=== PATIENT | female | born 1975 | race Caucasian/White ===

== ENCOUNTER 2019-10-30 05:40 | Observation (INO) | payer OTHER, SELFPAY ==
[2019-10-30] VITALS (14 sets, daily range): BP systolic 112–144; BP diastolic 58–100; PULSE 70–132; RESP 12–22; TEMP 36.1–37.6; O2SAT 95–100; BMI 33.3
--- NOTE | ~2019-10-30 | CT_ITS ---
EXAMINATION: CT abdomen pelvis w con EXAM DATE: 10/30/2019 06:35 INDICATION: Right lower quadrant abdominal pain for several days. Nausea and diarrhea. History cholec ystectomy. TECHNIQUE: Spiral CT of the abdomen and pelvis was performed following intravenous injection of 100 m L Omnipaque 350. Axial, coronal and sagittal images were reviewed. The dose-length product (DLP) fo r this examination was 1171.86 mGy-cm. The exposure was tailored according to patient size (auto mA exposure control), and iterative reconstruction (ASIR) was used as additional dose reduction techniqu e. Comparison is made to prior examination from 01/12/2015. FINDINGS: The liver, spleen, adrenal glands and pancreas are unremarkable. Gallbladder not identifie d, patient likely has had cholecystectomy.. Portal and splenic veins are patent. Kidneys enhance sy mmetrically. There is no hydronephrosis. The uterus and ovaries are unremarkable, no adnexal mass. The bladder is unremarkable. There is no retroperitoneal or pelvic lymphadenopathy. There is small to moderate-sized left supraumbilical fat-containing hernia. The appendix is significantly dilated, and has large amount of inflammation surrounding it, without a bscess or evidence of perforation. The stomach and small bowel are unremarkable. There is expected a mount of colonic stool. No free intraperitoneal gas. The heart is normal in size. There are no p ericardial or pleural effusions. The lung bases are unremarkable. The bones are unremarkable. IMPRESSION: Acute uncomplicated appendicitis. I discussed acute uncomplicated appendicitis with Kenya Watson MD at 10/30/2019 06:43 CDT. Reviewed, dictated and finalized at location A. IMPRESSION: Acute uncomplicated appendicitis. I discussed acute uncomplicated appendicitis with Kenya Watson MD at 2019 06:43 CDT.
--- NOTE | 2019-10-30 05:53 | ED.ABDPAIN ---
HPI - Abdominal Pain General Chief Complaint: Abdominal Pain Stated Complaint: RLQ pain Time Seen by Provider: 10/30/19 05:45 Source: patient Mode of arrival: ambulatory Limitations: no limitations History of Present Illness HPI narrative: This patient is a 44 year old female who presents for evaluation of right lower abdominal pain x 2 days. This pain has been constant and worsening. She developed severe pain 4 hours ago. She has associates nausea and dizziness. She has not taken anything for pain today. She denies fever, chills, urinary symptoms or abnormal vaginal discharge or bleeding. MD elicited complaint: abdominal pain Location: RLQ Pain scale (0-10): 7 Migration to: no migration Relieving factors: nothing Associated symptoms: nausea Related Data Hx Last Menstrual Period: 3 weeks ago Home Medications Medication Instructions Recorded Confirmed Xanax 0.25 mg PO TID PRN 10/30/19 10/30/19 Allergies Allergy/AdvReac Type Severity Reaction Status Date / Time morphine Allergy Intermediate Gastrointestinal Verified 10/30/19 06:27 Upset ceftriaxone Allergy Mild Gastrointestinal Verified 10/30/19 06:27 Upset Review of Systems Review of Systems: All systems reviewed & are unremarkable except as noted in HPI and below Constitutional: Constitutional: Denies chills, Reports fatigue and Denies fever(s) Gastrointestinal: Gastrointestinal: Reports abdominal pain, Denies diarrhea, Reports nausea and Denies vomiting Genitourinary: Genitourinary: Denies abnormal vaginal bleeding, Denies hematuria, Denies nocturia, Denies dysuria and Denies vaginal discharge Musculoskeletal: Musculoskeletal: Denies back pain Neurologic: Reports dizziness PMFSH Past Medical History Medical History (Updated 10/30/19 @ 12:01 by Med Birch MD) Anxiety History of hypertension Previously on oral medications. Was able to stop medications after weight loss and lifestyle changes. HTN (hypertension) Migraine Obesity Surgical History Surgical History History of section x 1 History of laparoscopy Exploratory laparoscopy x 2 for FLUID P[employer] concerns of endometriosis. Hx of cholecystectomy Laparoscopic cholecystectomy 2008. Family History Family History Mother Luis Nieto virus infection Daughter Celiac disease Grandparent Diabetes mellitus Grandparent Acute myocardial infarction Social History Social History (Reviewed 10/30/19 @ 10:36 by TIMA Tafoya Social History: The patient lives at home with her , Maxime Romano, and their 5-year-old. She designates her to be her medical decision maker. She wishes to be a full code. Smoking status: Never smoker Alcohol intake: current Alcohol use details: Rare alcohol use, a few times per month. Substance use: never Living arrangements: with family Occupation/Education: other Additional occupation/education comments: Stay at home mom. Gender identity (if verbalized by the patient): Female Sexual Orientation (if Verbalized by the Patient): Straight or Heterosexual Spiritual care concerns: No Exam Narrative: Exam Narrative: GENERAL: well-nourished, appears to be in pain. HEAD: Normocephalic, atraumatic EYES: PERRLA and EOMI, conjunctiva clear without discharge THROAT:Mucous membranes moist, Oropharynx normal without erythema, exudate, peritonsillar swelling or fluctuance NECK: Supple, without lymphadenopathy or mass RESPIRATORY: No respiratory distress, Airway patent, Respirations non-labored, Clear to auscultation without rales, rhonchi or wheeze HEART: tachycardic rate and regular rhythm. No murmur heard. Normal peripheral pulses. ABDOMEN: Soft, distended, RLQ tenderness, hypoactive bs No masses. No rebound or guarding, No organomegaly. EXTREMITIES: No edema, normal strength with f
[2019-10-30 05:58] LABS: Eosinophils Percent Auto 0.5 % (0-4.4); Hematocrit 29.1 % (37.0-47.0); Hemoglobin 9.6 g/dL (12.0-15.0); Lymphocytes Absolute Auto 0.94 K/mm3 (0.9-3.2); Lymphocytes Percent Auto 22.7 % (18.3-44.2); Mean Corpuscular Hemoglobin 27.7 pg (26-34); Mean Corpuscular Volume 84.1 fl (80-100); Mean Platelet Volume 9.6 fl (7.4-10.4); Monocytes Absolute Auto 3.1 K/mm3 (0.1-0.6); Monocytes Percent Auto 74.5 % (2.6-8.5); Neutrophils Absolute Auto 0.1 K/mm3 (1.3-6.7); Neutrophils Percent Auto 2.3 % (45.5-73.1); Nucleated Red Blood Cells Perc 0.5 % (0.0-0.2); Platelet Count Result 157 k/mm3 (150-375); Red Blood Count 3.46 M/mm3 (4.2-5.4); Red Cell Distribution Width 18.4 % (11.5-14.5); White Blood Count 4.2 K/mm3 (4.5-10.0)
[2019-10-30] MEDS: KETOROLAC 30 MG/ML VIAL (*BKC) IV PUSH (06:02)
[2019-10-30] MEDS: SODIUM CHLORIDE 0.9% IV 1,000 ML 999 ML IV CONT (06:05)
[2019-10-30 06:09] LABS: Atypical Lymphocytes Present
[2019-10-30 06:15] LABS: Alanine Aminotransferase 100 U/L (4-35); Albumin Level 4.1 g/dL (3.5-5.1); Alkaline Phosphatase 178 U/L (38-126); Anion Gap 13.9 mmol/L (7-16); Aspartate Amino Transferase 47 U/L (14-36); Bilirubin,Total 0.6 mg/dL (0.2-1.3); Blood Urea Nitrogen 8 mg/dL (7-17); Calcium 9.1 mg/dL (8.4-10.2); Carbon Dioxide 23 mmol/L (22-30); Chloride 102 mmol/L (98-107); Estimated CRCL calculation 106 ml/min; Estimated Glomerular Filt Rate > 60; Glucose 121 mg/dL (65-105); Lipase 35 U/L (23-300); Potassium 3.9 mmol/L (3.4-5.0); Sodium 135 mmol/L (137-145)
[2019-10-30 06:21] LABS: Add Urine Microscopic? YES; Appearance Urine Cloudy (Clear); Bilirubin Urine Negative (Negative); Blood Urine Negative (Negative); Color Urine Yellow (Yellow); Glucose Urine UA Negative (Negative); Ketones Urine 1+ mg/dL (Negative); Leukocyte Esterase Ur Negative LEU/UL (Negative); Mucus Urine Heavy /lpf; Nitrate Urine Negative (Negative); Protein Urine 1+ mg/dL (Negative); RBC Urine 0-2 /hpf (0-2); Specific Grav Ur 1.026 (1.001-1.035); Squamous Epithelial Cell Urine Many /hpf (Few); Urobilinogen Urine Negative mg/dL (<2.0)
[2019-10-30 06:26] LABS: Lactic Acid Reflex 0.8 mmol/L (0.7-2.1)
[2019-10-30] MEDS: SODIUM CHLORIDE 0.9% IV 1,000 ML 125 ML IV CONT (07:28)
[2019-10-30] MEDS: ERTAPENEM 1 GM/NS 50 ML 1 GM/50 ML BAG IVPB (07:29)
--- NOTE | 2019-10-30 08:20 | PC.NURSE ---
This patient, Ginger Romano, was admitted to Medical Room 347-. Patient/family oriented to hospital policies and general routines including ID bracelet, bed and alarms, visiting hours, pain management, procedures, bathroom and other care routines, personal items, smoking policy, room service/diet, and visiting hours. Valuables list has been completed. Information on how to activate the Rapid Response Team has been discussed. Patient/Family are encouraged to report perceived risks to care and to ask questions if they do not understand what they are told or what they should do.
--- NOTE | 2019-10-30 10:26 | PM.IMHP ---
H&P: HPI History of Present Illness Chief complaint: acute appendicitis Narrative: Ginger Romano is a 44 year old female who presented to the emergency department early this morning with complaints of right lower quadrant abdominal pain. The patient reports a gradual onset of right lower quadrant abdominal pain starting Sunday, three days ago. She states that initially the pain was mild and tolerable. Over the past 12-24 hours, the pain has significantly worsened and was intolerable even at rest. The abdominal pain was aggravated by movement, walking, and palpation. No alleviating factors. She denies known fevers or chills, but had been feeling faint at home for the last two days. She also reports diarrhea starting Sunday, but only two loose bowel movements yesterday. No blood or mucous in the stool. She has had little oral intake over the past two days with some mild nausea, but no vomiting. Due to the worsening pain yesterday and through the night, she decided to present to the emergency department for further evaluation. CT scan of the abdomen and pelvis showed acute uncomplicated appendicitis, no evidence of perforation or abscess. Also, incidentally noted was a moderate-sized left supraumbilical fat-containing hernia. Labs reveal a normal white blood cell count of 4,200, hemoglobin 9.6, and slightly elevated LFTs. Her heart rate was 132 in the ER and BP 144/100, afebrile. Both her blood pressure and heart rate have normalized. Our service was contacted by the ED provider and the decision was made to admit the patient for possible acute appendicitis. The patient is now being seen on the medical floor. She received a dose of Ertapenem in the ER. The patient reports still having right lower quadrant abdominal pain. This has improved with the IV Ofirmeve and she wants to avoid any IV narcotics. Denies nausea at this time. No other close contacts with similar symptoms. No shortness of breath, cough, congestion, or sore throat. No other complaints. Review of Systems Constitutional: Constitutional: Reports as per HPI, Reports no additional constitutional complaints, Denies chills, Denies excessive sweating, Denies fatigue, Denies fever(s), Denies headache(s), Reports poor appetite and Reports weakness (generalized weakness) Eyes: Eyes: Denies change in vision and Denies loss of vision ENT: Reports Normal hearing present, Denies dizziness and Denies headache(s) Cardiovascular: Cardiovascular: Denies chest pain, Denies syncope, Denies leg edema, Denies lightheadedness, Denies radiating jaw, neck or arm pain and Denies dyspnea Respiratory: Respiratory: Denies cough, Denies dyspnea and Denies wheezing Gastrointestinal: Gastrointestinal: Reports as per HPI, Reports abdominal pain (RLQ), Denies melena, Denies bloating, Denies hematochezia, Denies constipation, Denies dysphagia, Reports diarrhea, Reports loose stools, Reports nausea and Denies vomiting Comments: Notices a bulge on the left of her umbilicus that intermittently causes some discomfort, very mild Genitourinary: Genitourinary: Reports no additional female genitourinary complaints, Denies hematuria and Denies nocturia Musculoskeletal: Musculoskeletal: Denies deformity, Denies joint swelling, Denies radiating pain into limb and Denies tingling Integumentary/Breasts: Skin/Breast: Denies pruritus, Denies wounds and Denies jaundice Neurologic: Reports Normal hearing present, Denies confusion, Denies dizziness, Denies syncope, Denies headache(s), Denies loss of vision, Denies tingling and Denies tremor(s) Psychiatric: Psychiatric: Reports anxiety (takes PRN Xanax), Denies confusion and Denies depression Endocrine: Endocrine: Denies cold intolerance, Denies excessive sweating, Denies fatigue and Denies heat intolerance Hematologic/Lymphatic: Hematologic/Lymphatic: Denies easy bleeding and Denies easy bruising PMFSH Past Medical History Medical History
--- NOTE | 2019-10-30 11:59 | WPDANESEPPF ---
Anes - Initial Pre Proc Eval Procedure: Operation Date: 10/30/19 14:00 Proposed Procedures p Laparoscopic Appendectomy - Trevor Syed MD Date/Time: 10/30/19 11:59 Surgeon: Trevor Syed MD Pre Op Diagnosis: acute appendicitis Patient Data Age: 44 Gender: F Height: 1.63 m Weight: 88.2 kg Last Vital Signs Temp 37.2 C 10/30/19 05:45 Pulse 93 10/30/19 06:43 Resp 14 10/30/19 06:43 BP 119/78 10/30/19 06:43 Pulse Ox 99 10/30/19 06:43 Allergies Allergy/AdvReac Type Severity Reaction Status Date / Time morphine Allergy Intermediate Gastrointestinal Verified 10/30/19 06:27 Upset ceftriaxone Allergy Mild Gastrointestinal Verified 10/30/19 06:27 Upset Home Medications Medication Instructions Recorded Confirmed Type Xanax 0.25 mg PO TID PRN 10/30/19 10/30/19 History Laboratory Tests 10/30/19 10/30/19 10/30/19 05:52 05:52 06:00 WBC 4.2 K/mm3 L K/mm3 (4.5-10.0) RBC 3.46 M/mm3 L M/mm3 (4.2-5.4) Hgb 9.6 g/dL L g/dL (12.0-15.0) Hct 29.1 % L % (37.0-47.0) MCV 84.1 fl fl (80-100) MCH 27.7 pg pg (26-34) MCHC 33.0 g/dl g/dl (32-36) RDW 18.4 % H % (11.5-14.5) Plt Count 157 k/mm3 k/mm3 (150-375) MPV 9.6 fl fl (7.4-10.4) Immature Gran % (Auto) 0.0 % % (0-0.5) Neut % (Auto) 2.3 % L % (45.5-73.1) Lymph % (Auto) 22.7 % % (18.3-44.2) [place] % (Auto) 74.5 % H % (2.6-8.5) Eos % (Auto) 0.5 % % (0-4.4) Baso % (Auto) 0.0 % L % (0.2-1.2) Lymph # (Auto) 0.94 K/mm3 K/mm3 (0.9-3.2) [place] # (Auto) 3.1 K/mm3 H K/mm3 (0.1-0.6) Eos # (Auto) 0.0 K/mm3 K/mm3 (0-0.3) Baso # (Auto) 0.0 K/mm3 K/mm3 (0.0-0.1) Abs Immat Gran (auto) 0.00 K/mm3 K/mm3 (0.00-0.031) Absolute Neuts (auto) 0.1 K/mm3 L K/mm3 (1.3-6.7) Absolute Nucleated RBC 0.0 K/mm3 K/mm3 (0.0-0.012) Nucleated RBC % 0.5 % H % (0.0-0.2) Atypical Lymphocytes Present Platelet Estimate Slightly decreased (Adequate) Sodium 135 mmol/L L mmol/L (137-145) Potassium 3.9 mmol/L mmol/L (3.4-5.0) Chloride 102 mmol/L mmol/L (98-107) Carbon Dioxide 23 mmol/L mmol/L (22-30) Anion Gap 13.9 mmol/L mmol/L (7-16) BUN 8 mg/dL mg/dL (7-17) Creatinine 0.60 mg/dL L mg/dL (0.7-1.0) Estim Creat Clear Calc 106 ml/min ml/min Estimated GFR > 60 (59 - ) Glucose 121 mg/dL H mg/dL (65-105) Lactic Acid 0.8 mmol/L mmol/L (0.7-2.1) Calcium 9.1 mg/dL mg/dL (8.4-10.2) Total Bilirubin 0.6 mg/dL mg/dL (0.2-1.3) AST 47 U/L H U/L (14-36) ALT 100 U/L H U/L (4-35) Alkaline Phosphatase 178 U/L H U/L (38-126) Total Protein 8.0 g/dL g/dL (6.3-8.2) Albumin 4.1 g/dL g/dL (3.5-5.1) Lipase 35 U/L U/L (23-300) Urine Color Urine Appearance Urine pH Ur Specific [place] Urine Protein Urine Glucose (UA) Urine Ketones Ur Blood (Man) Urine Nitrate Urine Bilirubin Urine Urobilinogen Leukocyte Esterase Rfl Urine RBC Urine WBC Ur Squamous Epith Cells Hyaline Casts Urine Mucus 10/30/19 06:02 WBC RBC Hgb Hct MCV MCH MCHC RDW Plt Count MPV Immature Gran % (Auto) Neut % (Auto) Lymph % (Auto) [place] % (Auto) Eos % (Auto) Baso % (Auto) Lymph # (Auto) [place] # (Auto) Eos # (Auto) Baso # (Auto) Abs Immat Gran (auto) Absolute Neuts (auto)
--- NOTE | 2019-10-30 12:39 | PC.NURSE ---
Pt to OR per bed.
[2019-10-30] MEDS: LACTATED RINGERS 1,000 ML 30 ML IV CONT ×2 (12:50→15:44)
[2019-10-30] MEDS: ONDANSETRON INJ 4 MG/2 ML VIAL IV PUSH ×2 (12:58→21:09)
[2019-10-30] MEDS: BUPIVACAINE/EPINEPHRINE 0.5% 10 ML VIAL 30 ML INFILTRATE (14:23)
--- NOTE | 2019-10-30 15:36 | SUR.OPER ---
EBL 40 Urine 400 out
--- NOTE | 2019-10-30 15:46 | PM.PROC ---
Procedure Note - Detailed Date of procedure: 10/30/19 Pre-op diagnosis: acute appendicitis Post-op diagnosis: same Procedure performed: Laparoscopic Appendectomy Description of procedure: The patient was seen again in her hospital Room. The risks, benefits, complications, treatment options, and expected outcomes were discussed with the patient and/or family. The possibilities of reaction to medication, pulmonary aspiration, perforation of viscus, bleeding, recurrent infection, finding a normal appendix, the need for additional procedures, failure to diagnose a condition, and creating a complication requiring transfusion or operation were discussed. There was concurrence with the proposed plan and informed consent was obtained. The site of surgery was properly noted/marked. The patient was taken to Operating Room, and a time out was preformed which identified this as the proper patient, and the procedure verified as laparoscopic appendectomy, possible open. The patient was placed in the supine position and general anesthesia was induced, along with placement of orogastric tube, SCD hose, and a Fernández catheter. The abdomen was prepped and draped in a sterile fashion. Because the patient had had previous surgeries the Jacob cannula technique was utilized. To do this I made a incision in the umbilical area and carried this down to the midline fascia. Under direct vision the midline fascia was incised and the peritoneum entered under direct vision after placing 2 sutures of 0 Vicryl in the fascia on either side of midline. The Jacob cannula was then slid into place into the peritoneum under direct vision. The pneumoperitoneum was then established to steady pressure of 14 mm Hg. A 12 mm laparoscopic port was placed through a transverse suprapubic incision. An additional 5 mm cannula was then placed in the left lower quadrant of the abdomen at a level half way between the umbilicus and pubic symphysis under direct vision. A careful evaluation of the entire abdomen was carried out. The patient was placed in Trendelenburg and left lateral decubitus position. The small intestines were retracted in the cephalad and left lateral direction away from the pelvis and right lower quadrant. The patient was found to have an enlarged and inflamed appendix that was extending [into the right side of the pelvis. There was no evidence of perforation. there was very dense inflammatory adhesions surrounding the non perforated appendix. It was densely adhered inferiorly to the sidewall of the sigmoid colon CIS anteriorly to the ileum and posteriorly to the ileum and posterior right abdominal wall. It had to be significantly bluntly and sharply dissected in order to flip it up and out of the pocket that was laying in. The appendix was carefully dissected. Once it was free a 45 mm ethicon endogastroentestinal stapler with a vascular load was placed across the mesoappendix. This was fired and hemostasis was checked along the staple line and appeared to be adequate. Then another cartridge containing a vascular load applied and the stapler then placed right to the base of the appendix. This was also fired and bleeding was checked. The appendix was then divided at its base using the same 45 mm stapler with a 3.5 mm bowel wall load. Minimal appendiceal stump was left in place. There was no evidence of bleeding, leakage, or complication after division of the appendix at its junction with the cecum.. The appendix was then placed in an endobag which had been brought through the 12 mm suprapubic port site. The appendix and the bag were then extracted through this larger port site in the suprapubic position. The suprapubic port site was closed using a #1 Polysorb suture passed with a [place] cone and needle suture passer at the level of the fascia. The Jacob cannula site inferior to the umbilicus was closed with a [id number] 0 Vicryl suture and the 2 stay sutures mentioned above holdi
[2019-10-30] MEDS: diphenhydrAMINE HCl INJ 50 MG/ML VIAL 25 MG IV PUSH (16:00)
--- NOTE | 2019-10-30 17:00 | PC.NURSE ---
Pt returned from OR per bed.
[2019-10-30] MEDS: LACTATED RINGERS 1,000 ML 100 ML IV CONT (17:35)
[2019-10-30] MEDS: SENNA/DOCUSATE SODIUM TABLET 2 TAB PO (21:06)
[2019-10-31 04:43] VITALS: BP 125/71; PULSE 93; RESP 14; TEMP 37.4; O2SAT 95
[2019-10-31 06:13] LABS: Hematocrit 23.7 % (37.0-47.0); Hemoglobin 7.5 g/dL (12.0-15.0); Mean Corpuscular HGB Conc 31.6 g/dl (32-36); Mean Corpuscular Hemoglobin 27.1 pg (26-34); Mean Corpuscular Volume 85.6 fl (80-100); Mean Platelet Volume 9.7 fl (7.4-10.4); Platelet Count Result 143 k/mm3 (150-375); Red Blood Count 2.77 M/mm3 (4.2-5.4)
[2019-10-31 06:20] LABS: Anion Gap 9.6 mmol/L (7-16); Blood Urea Nitrogen 5 mg/dL (7-17); Carbon Dioxide 26 mmol/L (22-30); Chloride 100 mmol/L (98-107); Estimated CRCL calculation 130 ml/min; Estimated Glomerular Filt Rate > 60; Glucose 142 mg/dL (65-105); Potassium 3.6 mmol/L (3.4-5.0); Sodium 132 mmol/L (137-145)
[2019-10-31 06:22] LABS: White Blood Count 1.4 K/mm3 (4.5-10.0)
[2019-10-31] MEDS: ENOXAPARIN 40 MG/0.4 ML SYRINGE SUB-Q (08:34)
[2019-10-31 10:01] VITALS: BP 124/74; PULSE 95; RESP 16; TEMP 36.6; O2SAT 97
[2019-10-31 14:03] VITALS: BP 114/65; PULSE 95; RESP 16; TEMP 37.1; O2SAT 95
--- NOTE | 2019-10-31 15:39 | PM.DS ---
DS: Admitting Diagnosis Admitting Diagnosis Admitting Diagnosis: Acute appendicitis with localized peritonitis, without perforation or gangrene DS: Discharge Diagnosis Discharge Diagnosis (1) Acute appendicitis: Onset Date: ~10/28/19 Qualifiers: Acute appendicitis type: with localized peritonitis Appendicitis abscess presence: without abscess Appendicitis gangrene presence: unspecified whether gangrene present Appendicitis perforation presence: without perforation Qualified Code(s): K35.30 - Acute appendicitis with localized peritonitis, without perforation or gangrene Code(s): K35.80 - Unspecified acute appendicitis Status: Acute Assessment and Plan: Patient had uneventful hospital course. She had surgery on 10/30/2019 with the findings of acute appendicitis without perforation. She had significant inflammatory changes walling off the appendix in the right lower quadrant. See op report. (2) Anemia: Onset Date: Unknown Code(s): D64.9 - Anemia, unspecified Status: Acute Assessment and Plan: Patient apparently knew that she was anemic as long ago as 2 years ago. She has not been having this worked up and I encouraged she and her to be more aggressive about working this up and go to a staff counselor if necessary. They seem to understand. (3) Obesity: Onset Date: Unknown Code(s): E66.9 - Obesity, unspecified Status: Acute Assessment and Plan: BMI is 33. Patient should stand a low-fat diet and exercise more to try to lower her weight and be healthier. (4) Glucose intolerance (impaired glucose tolerance): Onset Date: Unknown Code(s): R73.02 - Impaired glucose tolerance (oral) Status: Acute Assessment and Plan: All her glucose levels here at the hospital have been slightly high. Even the fasting 1 this morning was somewhat elevated. I encouraged them to letter PCP know this and for further workup regarding possible prediabetes or early diabetes situation. DS: Summary Hospital Course Reason for hospitalization: Acute appendicitis Hospital Course: patient had uneventful hospital course. She had successful surgical intervention for her appendicitis. She received 1 dose of antibiotics prior to the surgery but since it was not ruptured she received no more. She is still having some right lower quadrant pain but this is not surprising with the amount of inflammation that was surrounding the appendix at the time of surgery yesterday. Patient tolerating her diet okay pain is fairly well controlled with oral pain medications and will send her home with hydrocodone 7.5/325. Tomorrow she will be able to supplement this with ibuprofen she will start taking 600 mg ibuprofen 3 times a day and then try to cut back on the hydrocodone after that. Have encouraged her to avoid constipation with this so she will take MiraLax as needed if she does not have a bowel movement in 24 hours. She will continue taking a stool softener it every night while she is taking her hydrocodone. Status at Discharge Cognitive/behavioral status at discharge: normal Functional status at discharge: independent ambulation Overall status at discharge: patient is progressing back to baseline (Feels somewhat weak but this goes along with having her hemoglobin down to 7.5 on today's H&H.) Time Spent with Patient Time attestation: Total time spent providing and/or coordinating discharge services: 30 minutes Specific discharge activities: I encouraged patient to have repeat CBC sometime next week. Will call the office and schedule appointment for follow-up in 2 weeks. Exam Const: General: cooperative, no acute distress, alert and awake Orientation/consciousness: patient oriented x3 HENMT: Mouth: Yes moist mucous membranes Neck: Neck: normal visual inspection Chest: Chest palpation & inspection: normal inspection of the chest Resp: Ef
== END 2019-10-31 18:10 | disposition home or self-care (01) ==
LOC: ANHED 06:58 → ANH3MED 07:44
PROVIDERS: Admitting Provider Surgery; Emergency Provider General Practice; PCP Physician Assistant; Visit Provider Surgery
PROC: 0DTJ4ZZ Resection of Appendix, Percutaneous Endoscopic Approach (ICD-10-PCS; CPT 44970; principal; 2019-10-30 14:00)
DX: K35.30 Acute appendicitis with localized peritonitis, without perforation or gangrene (principal); K36 Other appendicitis; D64.9 Anemia, unspecified; E66.9 Obesity, unspecified; Z68.33 Body mass index [BMI] 33.0-33.9, adult; R73.02 Impaired glucose tolerance (oral); K43.9 Ventral hernia without obstruction or gangrene; F41.9 Anxiety disorder, unspecified
CPT/HCPCS: 44970; 36415; 74177; 80048; 80053; 81001; 81025; 83605; 83690; 85025; 85027; 87086; 87088; 88304; 96361; 96365; 96372; 96374; 96375; 96376; 99285; A9270; G0378; J0131; J0330; J1100; J1170; J1200; J1335; J1650; J1885; J2250; J2405; J2704; J2710; J3010; J7030; J7120; Q9967

== ENCOUNTER 2019-11-10 13:45 | Outpatient (CLI) | payer OTHER, SELFPAY ==
[2019-11-10 14:00] LABS: Eosinophils Percent Auto 0.3 % (0-4.4); Hematocrit 25.1 % (37.0-47.0); Immature Granulocyte Absolute 0.01 K/mm3 (0.00-0.031); Immature Granulocyte Percent A 0.2 % (0-0.5); Lymphocytes Absolute Auto 2.27 K/mm3 (0.9-3.2); Lymphocytes Percent Auto 37.5 % (18.3-44.2); Mean Corpuscular HGB Conc 31.9 g/dl (32-36); Mean Corpuscular Hemoglobin 27.9 pg (26-34); Mean Corpuscular Volume 87.5 fl (80-100); Mean Platelet Volume 8.7 fl (7.4-10.4); Monocytes Absolute Auto 3.7 K/mm3 (0.1-0.6); Monocytes Percent Auto 60.4 % (2.6-8.5); Neutrophils Absolute Auto 0.1 K/mm3 (1.3-6.7); Neutrophils Percent Auto 1.6 % (45.5-73.1); Nucleated Red Blood Cells Perc 0.5 % (0.0-0.2); Platelet Count Result 250 k/mm3 (150-375); Red Blood Count 2.87 M/mm3 (4.2-5.4); Red Cell Distribution Width 18.3 % (11.5-14.5); White Blood Count 6.1 K/mm3 (4.5-10.0)
[2019-11-10 14:14] LABS: Anisocytosis 1+ (NORMAL); Ovalocytes 1+ (NORMAL); Platelet Estimate Adequate (Adequate)
[2019-11-10 14:55] LABS: Alanine Aminotransferase 68 U/L (4-35); Albumin Level 3.7 g/dL (3.5-5.1); Alkaline Phosphatase 180 U/L (38-126); Anion Gap 9 mmol/L (8-16); Aspartate Amino Transferase 50 U/L (14-36); Bilirubin,Total 0.2 mg/dL (0.2-1.3); Blood Urea Nitrogen 10 mg/dL (7-17); Calcium 8.6 mg/dL (8.4-10.2); Carbon Dioxide 28 mmol/L (22-30); Chloride 100 mmol/L (98-107); Estimated Glomerular Filt Rate > 60; Glucose 123 mg/dL (65-105); Lactate Dehydrogenase 724 U/L (313-618); Potassium 4.2 mmol/L (3.4-5.0); Sodium 137 mmol/L (137-145)
== END 2019-11-10 13:46 | disposition home or self-care (01) ==
LOC: ANHLAB 13:47
PROVIDERS: PCP Physician Assistant; Visit Provider Internal Medicine Hematology & Oncology
DX: D64.9 Anemia, unspecified (principal)
CPT/HCPCS: 36415; 80053; 83615; 85025

== ENCOUNTER 2019-11-11 21:23 | Emergency (ER) | payer OTHER, SELFPAY ==
--- NOTE | ~2019-11-11 | CT_ITS ---
EXAMINATION: CT soft tissue neck w con EXAM DATE: 11/11/2019 22:39 INDICATION: Submandibular swelling, fever. Palpitations. TECHNIQUE: Spiral CT of the neck was performed following intravenous injection of 75 mL Omnipaque 350 . Axial, coronal and sagittal images were reviewed. The dose-length product (DLP) for this examinat ion was 469.82 mGy-cm. The exposure was tailored according to patient size (auto mA exposure control ), and iterative reconstruction (ASIR) was used as additional dose reduction technique. There is no prior study for comparison. FINDINGS: Incompletely imaged left upper lobe confluent airspace disease measuring about 4 cm with il l-defined border, appearance most consistent with acute infectious process such as bacterial pneumoni a. The thyroid gland is unremarkable. The submandibular and parotid glands are symmetric. There is no cervical lymphadenopathy. There are no masses identified. The superior mediastinum is unrem arkable. The airway is unremarkable. Parapharyngeal and pre-glottic fat planes are preserved. T he opacified vasculature is patent. The orbits are unremarkable. Visualized sinuses and mastoid a ir cells are well aerated. Small left maxillary sinus retention cysts. IMPRESSION: Left upper lobe airspace disease most likely acute bacterial pneumonia. Reviewed, dictated and finalized at location A. IMPRESSION: Left upper lobe airspace disease most likely acute bacterial pneumo giles.
--- NOTE | ~2019-11-11 | XR_ITS ---
EXAMINATION: XR chest 2V EXAM DATE: 11/11/2019 22:41 INDICATION: Fever, airspace disease. TECHNIQUE: Frontal and lateral projections of the chest obtained and reviewed. Comparison is made to prior examination from 07/10/2016. FINDINGS: Left upper lobe acute airspace disease as seen on CT, most consistent with bacterial pneum onia. Please clinically correlate. The lungs are otherwise clear. There are no pleural effusions. T he cardiomediastinal silhouette is within normal limits. There is no pneumothorax suspected. There are cholecystectomy clips. IMPRESSION: Left upper lobe acute airspace disease most likely pneumonia. Reviewed, dictated and finalized at location A.
[2019-11-11 21:29] VITALS: BP 137/91; PULSE 136; RESP 20; TEMP 38.1; O2SAT 97
--- NOTE | 2019-11-11 21:34 | ECG_ITS ---
Measurements Intervals [place] Rate: 135 P: 58 [place]: 134 QRS: 24 QRSD: 94 T: 24 QT: 302 QTc: 453 Interpretive Statements SINUS TACHYCARDIA NONSPECIFIC ST & T-WAVE ABNORMALITY- ANTERIOR LEADS BASELINE WANDER- I, II, III, AVR, AVL, V2-V6 ABNORMAL ECG Electronically Signed On 11-12-2019 7:14:03 CDT by Adrian Guillen D.O.
--- NOTE | 2019-11-11 21:36 | ED.FEVER ---
HPI - Fever General Chief Complaint: Fever Stated Complaint: heart palpitations Time Seen by Provider: 11/11/19 21:25 History of Present Illness HPI Narrative: She has been seeing [facility] for fevers and a submandibular lymph node. She was originally referred to them due to low WBC count. Tonight she noted that the lymph node rapidly increased in size. She has also had a persistent fever. She has been taking Tylenol with out improvement. She also noted a rapid heart rate. Related Data Home Medications Medication Instructions Recorded Confirmed Xanax 0.25 mg PO TID PRN 10/30/19 10/30/19 amoxicillin-pot clavulanate 1 tablet PO BID 11/11/19 fluconazole 150 mg PO BID 11/11/19 Allergies Allergy/AdvReac Type Severity Reaction Status Date / Time morphine Allergy Intermediate Gastrointestinal Verified 11/11/19 21:45 Upset ceftriaxone Allergy Mild Gastrointestinal Verified 11/11/19 21:45 Upset Review of Systems Review of Systems: All systems reviewed & are unremarkable except as noted in HPI and below Constitutional: Constitutional: Reports chills and Reports fever(s) ENT: Denies sore throat Cardiovascular: Cardiovascular: Denies chest pain Respiratory: Respiratory: Denies cough and Denies dyspnea Gastrointestinal: Gastrointestinal: Denies abdominal pain and Denies nausea Genitourinary: Genitourinary: Denies hematuria and Denies dysuria Musculoskeletal: Musculoskeletal: Denies back pain Integumentary/Breasts: Skin/Breast: Denies rash Neurologic: Denies dizziness and Denies weakness PMFSH Past Medical History Medical History Anxiety History of hypertension Previously on oral medications. Was able to stop medications after weight loss and lifestyle changes. HTN (hypertension) Migraine Obesity (Unknown) Surgical History Surgical History History of section x 1 History of laparoscopy Exploratory laparoscopy x 2 for [employer] concerns of endometriosis. Hx of cholecystectomy Laparoscopic cholecystectomy 2008. Family History Family History Mother Luis Nieto virus infection Daughter Celiac disease Grandparent Diabetes mellitus Grandparent Acute myocardial infarction Social History Social History Social History: The patient lives at home with her , Maxime Romano, and their 5-year-old. She designates her to be her medical decision maker. She wishes to be a full code. Smoking status: Never smoker Alcohol intake: current Substance use: never Additional occupation/education comments: Stay at home mom. Gender identity (if verbalized by the patient): Female Spiritual care concerns: No Exam Const: General: healthy appearing, no acute distress and alert Orientation/consciousness: patient oriented x3 HENMT: Other: submandibular swelling. No obvious mass or fluctuance Chest: Chest palpation & inspection: no tenderness Resp: Effort & Inspection: normal respiratory effort Auscultation: clear to auscultation bilaterally, no rales, no rhonchi and no wheezes Cardio: Jugular venous distension: no JVD Rate: tachycardic Rhythm: regular rhythm Heart sounds: no murmurs GI: Inspection: non-distended GI Palp: Yes Soft to palpation and No Tenderness to palpation present (GI) Skin: General skin exam: normal color Neuro: General: patient oriented x3 and moves all extremities Speech: normal speech Extrem: General: no edema Psych: Appearance: well kempt Affect: normal affect Course Vital Signs Vital signs: Vital Signs Temperature 38.1 C H 11/11/19 21:29 Pulse Rate 136 H 11/11/19 21:29 Respiratory Rate 20 11/11/19 21:29 Blood Pressure 137/91 H 11/11/19 21:29 Pulse Oximetry 97 11/11/19 21:29 Temperature 3
[2019-11-11 21:54] LABS: Eosinophils Percent Auto 0.2 % (0-4.4); Hematocrit 24.5 % (37.0-47.0); Lymphocytes Absolute Auto 1.27 K/mm3 (0.9-3.2); Lymphocytes Percent Auto 19.3 % (18.3-44.2); Mean Corpuscular HGB Conc 32.7 g/dl (32-36); Mean Corpuscular Hemoglobin 27.6 pg (26-34); Mean Corpuscular Volume 84.5 fl (80-100); Mean Platelet Volume 9.4 fl (7.4-10.4); Monocytes Absolute Auto 5.2 K/mm3 (0.1-0.6); Monocytes Percent Auto 78.8 % (2.6-8.5); Neutrophils Absolute Auto 0.1 K/mm3 (1.3-6.7); Neutrophils Percent Auto 1.7 % (45.5-73.1); Nucleated Red Blood Cells Perc 0.5 % (0.0-0.2); Platelet Count Result 237 k/mm3 (150-375); Red Cell Distribution Width 17.9 % (11.5-14.5); White Blood Count 6.6 K/mm3 (4.5-10.0)
[2019-11-11] MEDS: KETOROLAC 30 MG/ML VIAL (*BKC) IV PUSH (21:57)
[2019-11-11 22:03] LABS: INR 1.1; Prothrombin Time 13.4 Seconds (11.1-14.7)
[2019-11-11 22:04] LABS: Lactic Acid Reflex 1.2 mmol/L (0.7-2.1); Partial Thromboplastin Time 29.8 SECONDS (22.3-36.8)
[2019-11-11 22:07] LABS: Alanine Aminotransferase 62 U/L (4-35); Albumin Level 3.9 g/dL (3.5-5.1); Alkaline Phosphatase 210 U/L (38-126); Anion Gap 10 mmol/L (8-16); Aspartate Amino Transferase 45 U/L (14-36); Bilirubin,Total 0.7 mg/dL (0.2-1.3); Blood Urea Nitrogen 7 mg/dL (7-17); Carbon Dioxide 23 mmol/L (22-30); Chloride 99 mmol/L (98-107); Estimated CRCL calculation 94 ml/min; Estimated Glomerular Filt Rate > 60; Glucose 133 mg/dL (65-105); Potassium 3.8 mmol/L (3.4-5.0); Sodium 132 mmol/L (137-145)
[2019-11-11] MEDS: SODIUM CHLORIDE 0.9% IV 1,000 ML 999 ML IV CONT (22:27)
[2019-11-11 22:37] LABS: CRP 16.8 mg/dL (<1.0)
[2019-11-11 23:48] LABS: Add Urine Microscopic? YES; Appearance Urine Clear (Clear); Bilirubin Urine Negative (Negative); Blood Urine Negative (Negative); Color Urine Yellow (Yellow); Glucose Urine UA Negative (Negative); Ketones Urine Trace mg/dL (Negative); Leukocyte Esterase Ur Negative LEU/UL (Negative); Mucus Urine Rare /lpf; Nitrate Urine Negative (Negative); Protein Urine Negative (Negative); RBC Urine 0-2 /hpf (0-2); Squamous Epithelial Cell Urine Few /hpf (Few); Urobilinogen Urine Negative mg/dL (<2.0); WBC Urine 0-3 /hpf
[2019-11-11 23:50] LABS: Specific Grav Ur 1.088 (1.001-1.035)
[2019-11-12] MEDS: AZITHROMYCIN 250 MG TABLET 500 MG PO (00:36)
[2019-11-12 00:37] VITALS: BP 117/80; PULSE 89; RESP 17; O2SAT 97
[2019-11-12 14:11] LABS: SARS-CoV-2 RNA PCR Negative
== END 2019-11-12 00:38 | disposition home or self-care (01) ==
PROVIDERS: Emergency Provider Emergency Medicine; PCP Physician Assistant
DX: J18.9 Pneumonia, unspecified organism (principal); Z20.828 Contact with and (suspected) exposure to other viral communicable diseases; F41.9 Anxiety disorder, unspecified; I10 Essential (primary) hypertension; E66.9 Obesity, unspecified; Z68.32 Body mass index [BMI] 32.0-32.9, adult
CPT/HCPCS: 36415; 70491; 71046; 80053; 81001; 83605; 85025; 85610; 85730; 86140; 87040; 87635; 87880; 93005; 96361; 96374; 99284; A9270; C9803; J1885; J7030; Q9967; U0003

== ENCOUNTER 2019-11-14 00:41 | Outpatient (CLI) | payer OTHER, SELFPAY ==
[2019-11-14 18:35] LABS: SARS-CoV-2 RNA PCR Negative
== END 2019-11-14 00:42 | disposition home or self-care (01) ==
LOC: ANHCOVIDDT 00:41
PROVIDERS: PCP Physician Assistant; Visit Provider Internal Medicine Hematology & Oncology
DX: Z01.812 Encounter for preprocedural laboratory examination (principal); Z20.828 Contact with and (suspected) exposure to other viral communicable diseases
CPT/HCPCS: 87635; C9803; U0003

== ENCOUNTER 2019-11-17 07:30 | Day surgery (SDC) | payer OTHER, SELFPAY ==
[2019-11-14 14:46] VITALS: BMI 32.3
--- NOTE | ~2019-11-17 | BM_ITS ---
EXAMINATION: CCL bone marrow asp w bx diag DATE: 11/17/2019 09:40 INDICATION: Leukopenia. TECHNIQUE: A time-out was performed to verify the patient's name, date of , and procedure to b e performed. The procedure including the risks, benefits, and alternatives was discussed with the pat ient. Risks discussed included bleeding and infection. The patient understood the risks and agreed to proceed. The skin overlying the right ilium was prepped and draped in usual sterile fashion. Anest hetic was administered with 1% lidocaine subcutaneously. Moderate sedation was achieved with 2 mg Karen sed IV and 150 mcg fentanyl IV. An 11 gauge needle was inserted into the ilium with fluoroscopic alie dance. Bone marrow was aspirated. An 8 gauge needle was then inserted into the ilium with fluoroscopi c guidance. A core bone marrow biopsy was obtained. There were no immediate complications. Fluoroscop y exposure time was 0.0 minutes. The total number of images was 13. FINDINGS: Real-time fluoroscopy demonstrates a marker overlying the right posterior superior iliac sp ine. IMPRESSION: 1. Fluoro-guided bone marrow aspiration. 2. Fluoro-guided bone marrow core biopsy. Reviewed, dictated and finalized at location A.
[2019-11-17 07:56] VITALS: BP 123/76; PULSE 121; RESP 15; TEMP 38.1; O2SAT 97
[2019-11-17 08:05] LABS: Hemoglobin 7.2 g/dL (12.0-15.0); Mean Corpuscular HGB Conc 31.3 g/dl (32-36); Mean Corpuscular Hemoglobin 27.7 pg (26-34); Mean Corpuscular Volume 88.5 fl (80-100); Mean Platelet Volume 10.2 fl (7.4-10.4); Platelet Count Result 163 k/mm3 (150-375); Red Cell Distribution Width 18.1 % (11.5-14.5); White Blood Count 4.1 K/mm3 (4.5-10.0)
[2019-11-17 08:16] LABS: INR 1.2; Prothrombin Time 14.9 Seconds (11.1-14.7)
--- NOTE | 2019-11-17 09:41 | WPDMODSED ---
Moderate Sedation Note-Pt Data Patient Data Diagnosis: Leukopenia. Present Complaint: Leukopenia. Procedure to be performed/Plan: Fluoro-guided bone marrow biopsy. Allergies Allergy/AdvReac Type Severity Reaction Status Date / Time morphine Allergy Intermediate Gastrointestinal Verified 11/11/19 21:45 Upset ceftriaxone Allergy Mild Gastrointestinal Verified 11/11/19 21:45 Upset Home Medications Medication Instructions Recorded Confirmed Type Xanax 0.25 mg PO TID PRN 10/30/19 11/14/19 History amoxicillin-pot clavulanate 1 tablet PO BID 11/11/19 11/14/19 History fluconazole 150 mg PO DAILY 11/11/19 11/14/19 History azithromycin See Rx Instructions .ROUTE 11/12/19 11/14/19 Rx .COMPLEX #6 tablet Sedation/Anesthesia: No previous sedation/anesthesia problems (including family history). [facility] Past Medical History Medical History Anxiety History of hypertension Previously on oral medications. Was able to stop medications after weight loss and lifestyle changes. HTN (hypertension) Migraine Obesity (Unknown) Social History Social History Social History: The patient lives at home with her , Maxime Romano, and their 5-year-old. She designates her to be her medical decision maker. She wishes to be a full code. Smoking status: Never smoker Alcohol intake: current Substance use: never Substance use type: does not use Living arrangements: with family Additional occupation/education comments: Stay at home mom. Gender identity (if verbalized by the patient): Female Sexual Orientation (if Verbalized by the Patient): Straight or Heterosexual Spiritual care concerns: No Mod Sed Physical Exam Physical Exam Pre Procedural Exam: Normal: Lungs, Heart Rhythm and Abdomen and Variation: Airway (Mallampati class II.) and Heart Rate (Tachycardia.) Hours since solid foods: 12 Hours since liquid intake: 11 Internal Medicine - PN: Obj Da Vital Signs Vital Signs: Vital Signs - 24 hr 11/17/19 07:56 Temperature 38.1 C H Pulse Rate 121 H Respiratory Rate 15 Blood Pressure 123/76 Pulse Oximetry 97 Labs CBC & Chem 7: 11/17/19 07:50 Labs: Laboratory Results - last 24 hr 11/17/19 11/17/19 07:50 07:50 WBC 4.1 L RBC 2.60 L Hgb 7.2 L Hct 23.0 L MCV 88.5 MCH 27.7 MCHC 31.3 L RDW 18.1 H Plt Count 163 MPV 10.2 PT 14.9 H INR 1.2 ASA Classification/Sedation ASA Classification/Sedation ASA Class: II Risks: Risks, benefits and alternatives explained and patient/family accepted plan for sedation. Patient re-evaluated immediately prior to sedation.
[2019-11-17 09:45] VITALS: BP 130/71; PULSE 103; RESP 21; TEMP 38.1; O2SAT 93
[2019-11-17 10:00] VITALS: BP 116/76; PULSE 108; RESP 22; O2SAT 95
[2019-11-17 10:15] VITALS: BP 116/74; PULSE 112; RESP 18; O2SAT 95
[2019-11-17 10:30] VITALS: BP 122/71; PULSE 107; RESP 26; O2SAT 97
== END 2019-11-17 10:50 | disposition home or self-care (01) ==
PROVIDERS: PCP Physician Assistant; Referring Provider Internal Medicine Hematology & Oncology; Visit Provider Radiology Diagnostic Radiology
PROC: 07DT3ZX Extraction of Bone Marrow, Percutaneous Approach, Diagnostic (ICD-10-PCS; CPT 38220; principal; 2019-11-17 09:00)
DX: C92.00 Acute myeloblastic leukemia, not having achieved remission (principal); F41.9 Anxiety disorder, unspecified; E66.9 Obesity, unspecified; Z68.32 Body mass index [BMI] 32.0-32.9, adult; Z98.84 Bariatric surgery status; Z79.899 Other long term (current) drug therapy
CPT/HCPCS: 36415; 38220; 38222; 85027; 85610; 88184; 88185; 88305; 88311; 88313; J2250; J3010; J7040

== ENCOUNTER 2021-04-03 16:39 | Emergency (ER) | payer OTHER, SELFPAY ==
[2021-04-03 16:51] VITALS: BP 126/84; PULSE 106; RESP 16; TEMP 36.4; O2SAT 100
--- NOTE | 2021-04-03 18:56 | ED.FEMALEGU ---
HPI - Female Genitourinary General Chief complaint: Urogenital-Female Stated complaint: vaginal pain uti or yeast Time Seen by Provider: 04/03/21 18:56 Source: patient and RN notes reviewed Mode of arrival: ambulatory Limitations: no limitations History of Present Illness HPI Narrative: 45 year old female who presents to [facility] care with complaints of burning with urination for the 2-3 days with vaginal pressure mild vaginal drainage. Patient denies any itching in perineal area or foul odor.Patient states some lower abdominal discomfort to left side intermittently. Patient denies any fevers, chills, or sweats, denies any nausea or vomiting. Patient denies any flank pain or visible blood in her urine,has not taken any OTC AZO. MD elicited complaint: dysuria and UTI Related Data Home Medications Medication Instructions Recorded Confirmed alprazolam 04/03/21 atovaquone 04/03/21 clonazepam 04/03/21 docusate sodium PO 04/03/21 pantoprazole PO 04/03/21 04/03/21 temazepam mg 04/03/21 trazodone 04/03/21 valacyclovir 04/03/21 Allergies Allergy/AdvReac Type Severity Reaction Status Date / Time morphine Allergy Intermediate Gastrointestinal Verified 04/03/21 17:03 Upset ceftriaxone Allergy Mild Gastrointestinal Verified 04/03/21 17:03 Upset Review of Systems Review of Systems: CONSTITUTIONAL: Denies fever, chills, or sweats. EYES: Denies visual changes, redness, or discharge. ENT: Denies rhinorrhea, congestion, sore throat, or otalgia. CARDIOVASCULAR: Denies chest pain, palpitations, or edema. RESPIRATORY: Denies cough or dyspnea. GASTROINTESTINAL: intermittent left lower abdominal pain,no nausea, vomiting, or diarrhea. GENITOURINARY: Positive for dysuria or hematuria, perineal pressure. SKIN: Denies rash or itching. MUSCULOSKELETAL: Denies back pain, joint pain, or myalgia. NEUROLOGIC: Denies headache, numbness, or weakness. PSYCHIATRIC: Positive for anxiety or depression. All systems reviewed & are unremarkable except as noted in HPI and below PMFSH Past Medical History Medical History Anxiety History of hypertension Previously on oral medications. Was able to stop medications after weight loss and lifestyle changes. 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 Hx of cholecystectomy Laparoscopic cholecystectomy 2008. Family History Family History Mother Luis Nieto virus infection Daughter Celiac disease Grandparent Diabetes mellitus Grandparent Acute myocardial infarction Social History Social History Social History: The patient lives at home with her , Maxime Romano, and their 5-year-old. She designates her to be her medical decision maker. She wishes to be a full code. Smoking status: Never smoker Alcohol intake: current Alcohol use details: Rare alcohol use, a few times per month. Substance use: never Substance use type: does not use Additional occupation/education comments: Stay at home mom. Gender identity (if verbalized by the patient): Female Sexual Orientation (if Verbalized by the Patient): Straight or Heterosexual Spiritual care concerns: No Comments At time of signature, agree with nursing past medical, surgical, social and family history. There is no relevant family history pertinent to the presenting complaint Exam Narrative: GENERAL: Well-appearing, well-nourished, and in no acute distress. HEAD: Normocephalic, atraumatic. EYES: PERRLA and EOMI. ENT: Nares clear, no rhinorrhea or epistaxis. Mucous memb
== END 2021-04-03 19:06 | disposition home or self-care (01) ==
PROVIDERS: Emergency Provider Registered Nurse
DX: N39.0 Urinary tract infection, site not specified (principal); C95.91 Leukemia, unspecified, in remission
CPT/HCPCS: 81003; 87077; 87086; 87088; 99213; G0463